=== PATIENT | male | born 1990 | race Caucasian/White ===

== ENCOUNTER 2018-07-31 20:21 | Emergency (ER) | payer OTHER ==
[2018-07-31] MEDS: HYDROCODONE/APAP (10/325) TAB PO (22:55)
== END 2018-07-31 23:32 | disposition home or self-care (01) ==
LOC: FTE 20:21
DX: S20.211A Contusion of right front wall of thorax, initial encounter (principal); F12.10 Cannabis abuse, uncomplicated; S49.91XA Unspecified injury of right shoulder and upper arm, initial encounter; F17.210 Nicotine dependence, cigarettes, uncomplicated; V19.9XXA Pedal cyclist (driver) (passenger) injured in unspecified traffic accident, initial encounter
CPT/HCPCS: 71110; 73030-RT; 93005; 99284-25